=== PATIENT | male | born 1965 | race Caucasian/White ===

== ENCOUNTER 2018-10-11 17:45 | Emergency (ER) | payer BC ==
[2018-10-11] MEDS ORDERED: Codeine/guaiFENesin 100mg-10 MG/5 ML Syrup 10 ML Cup PO ONE (18:16)
--- NOTE | 2018-10-11 18:16 | EDM.PDOC ---
ED HPI GENERAL MEDICAL PROBLEM - General Chief Complaint: Respiratory Problem Stated Complaint: COUGHING Time Seen by Provider: 10/11/18 18:09 Source of Information: Reports: Patient, Family, RN Notes Reviewed History Limitations: Reports: No Limitations - History of Present Illness INITIAL COMMENTS - FREE TEXT/NARRATIVE: 52-year-old gentleman presents emergency department day complaint of cough and shortness of breath, he states been ill for 3 weeks cough is progressively gotten worse he has had posttussive emesis as well does not have a regular physician, fevers initially first week now resolved Right Upper Chest Pain Score (Numeric/FACES): 1 - Related Data Allergies Allergy/AdvReac Type Severity Reaction Status Date / Time No Known Allergies Allergy Verified 10/11/18 18:02 Home Meds: Home Meds Multivitamin [Multi Vitamin Daily] 1 each PO DAILY 09/02/13 [History] Past Medical History Musculoskeletal History: Reports: Fracture - Past Surgical History GI Surgical History: Reports: Colostomy Social & Family History - Tobacco Use Smoking Status *Q: Never Smoker - Caffeine Use Caffeine Use: Reports: Soda - Recreational Drug Use Recreational Drug Use: No ED ROS GENERAL - Review of Systems Review Of Systems: See Below Constitutional: Reports: Fever, Diaphoresis. Denies: Chills HEENT: Reports: No Symptoms Respiratory: Reports: Shortness of Breath, Cough, Sputum Cardiovascular: Reports: Chest Pain GI/Abdominal: Reports: Nausea, Vomiting : Reports: No Symptoms Musculoskeletal: Reports: No Symptoms Skin: Reports: No Symptoms Neurological: Reports: No Symptoms ED EXAM, GENERAL - Physical Exam Exam: See Below Free Text/Narrative:: General: Male, not in any distress, alert and oriented x3 HEENT: head is atraumatic normocephalic, eyes pupils equal round reactive to light, sclera clear no conjunctivitis appreciated. Ears tympanic membranes clear and schmitz landmarks and light reflex are present bilaterally canals are clear. Nose no septal deviation, nares are clear, no blood present. Mouth mucosa is moist and pink no erythema or exudate noted in soft palate, tongue is midline uvula is midline, dentition is intact. Neck: Supple no thyromegaly no tracheal deviation. Nodes: Cervical nodes subclavicular nodes nontender no palpable lymphadenopathy noted. Lungs: clear to auscultation bilaterally with symmetrical respirations, no adventitious noise appreciated. CV: Regular rate and rhythm S1 and S2 appreciated no murmurs rubs or gallops noted. Abdomen: Soft, nontender, no palpable masses or organomegaly appreciated, no distention no guarding bowel sounds are present, Course - Vital Signs Last Recorded V/S: Last Vital Signs Temp 96.1 F 10/11/18 18:03 Pulse 87 10/11/18 18:03 Resp 16 10/11/18 18:03 BP 159/84 H 10/11/18 18:03 Pulse Ox 97 10/11/18 18:03 - Orders/Labs/Meds Orders: Active Orders 24 hr Category Date Time Status Cardiac Monitoring [RC] .As Directed Care 10/11/18 18:12 Active [email or web address] PCR Urgent Lab 10/11/18 18:54 Ordered Labs: Laboratory Tests 10/11/18 10/11/18 10/11/18 Range/Units 18:24 18:24 18:24 WBC 7.4 (4.5-11.0) K/uL RBC 4.66 (4.30-5.90) M/uL Hgb 14.0 (12.0-15.0) g/dL Hct 42.4 (40.0-54.0) % MCV 91 (80-98) fL MCH 30 (27-31) pg MCHC 33 (32-36) % Plt Count 243 (150-400) K/uL Neut % (Auto) 65 (36-66) % Lymph % (Auto) 27 (24-44) % [place] % (Auto) 6 (2-6) % Eos % (Auto) 2 (2-4) % Baso % (Auto) 0 (0-1) % Sodium 141 (140-148) mmol/L Potassium 3.8 (3.6-5.2) mmol/L Chloride 103 (100-108) mmol/L Carbon Dioxide 26 (21-32) mmol/L Anion Gap 12.1 (5.0-14.0) mmol/L BUN 16 (7-18) mg/dL Creatinine 1.1 (0.8-1.3) mg/dL Est Cr Clr Drug Dosing 77.66 mL/min Estimated GFR (MDRD) > 60 (>60) Glucose 136 H (74-106) mg/dL Lactic Acid 2.7 H (0.4-2.0) mmol/L Calcium 9.1 (8.5-10.1) mg/dL Total Bilirubin 0.4 (0.2-1.0) mg/dL AST 19 (15-37) U/L ALT 28 (12-78) U/L Alkaline Phosphatase 67 (46-116) U/L Troponin I < 0.017 (0.000-0.056) ng/mL Total Protein 7.3 (6.4-8.2) g/dL Albumin 3.7 (3.4-5.0) g/dL Globulin 3.6 H (2.3-3.5) g/dL Albumin/Globulin Ratio 1.0 L (1.2-2.2) Meds: Medications Discontinued Medications Generic Name Dose Route Start Last Admin Trade Name Freq PRN Reason Stop Dose Admin Benzonatate 200 mg 10/11/18 18:53 10/11/18 19:14 Tessalon Perles PO 10/11/18 18:54 200 mg ONETIME ONE Administration Guaifenesin/Codeine Phosphate 10 ml 10/11/18 18:16 10/11/18 18:32 Robitussin Ac PO 10/11/18 18:17 10 ml ONETIME ONE Administration Departure - Departure Time of Disposition: 19:15 Disposition: Home, Self-Care 01 Condition: Fair Clinical Impression: Bronchitis - Discharge Information Referrals: PCP,None [Primary Care Provider] - Forms: ED Department Discharge Additional Instructions: Take full course of antibiotics, use Robitussin with codeine to help suppress the cough please follow-up with your primary care provider in the next 3-5 days for reevaluation - My Orders Last 24 Hours: My Active Orders 10/11/18 18:12 Cardiac Monitoring [RC] .As Directed 10/11/18 18:54 [email or web address] PCR Urgent - Assessment/Plan Last 24 Hours: My Active Orders 10/11/18 18:12 Cardiac Monitoring [RC] .As Directed 10/11/18 18:54 [email or web address] PCR Urgent Plan: Assessment Acuity = acute Site and laterality = bronchitis Etiology = unclear etiology Manifestations = cough Location of injury = Home Lab values = CBC, CMP chest x-ray unremarkable pertussis pending Plan Prescription written for azithromycin 5 day course, Robitussin with codeine 10 mL every 4-6 hours when necessary 120 mm bottle him follow-up primary care 3-5 days for reevaluation This note was dictated using [employer] voice recognition software please call with any questions on syntax or grammar.
--- NOTE | 2018-10-11 18:40 | CRLCR ---
Indication: Cough. Technique: PA and lateral views the chest were obtained. Comparison: None Findings: Heart is normal in size. The lungs are hyperinflated. No infiltrate, pleural effusion, or pneumothorax is identified. Impression: No acute cardiopulmonary process. Dictated by Pushpa Malin MD @ Oct 11 2018 6:37PM Signed by Dr. Pushpa Malin @ Oct 11 2018 6:39PM
[2018-10-11] MEDS ORDERED: Benzonatate 100 MG Cap PO ONE (18:53)
[2018-10-16 11:08] LABS: BORDETELLA PARAPERTUSSIS DNA Negative (Negative); BORDETELLA PERTUSSIS DNA Negative (Negative)
== END 2018-10-11 19:28 | disposition home or self-care (01) ==
LOC: JP.ED 17:45
DX: J40 Bronchitis, not specified as acute or chronic (principal)
CPT/HCPCS: 36415; 71046; 80053; 83605; 84484; 85025; 87798; 99283; A9270

== ENCOUNTER 2023-10-11 12:41 | Emergency (ER) | payer BC ==
[2023-10-11] MEDS: Doxycycline 100 MG Cap PO ONE (15:41)
== END 2023-10-11 15:45 | disposition home or self-care (01) ==
LOC: JP.ED 12:41
DX: S40.861A Insect bite (nonvenomous) of right upper arm, initial encounter (principal); Z86.16 Personal history of COVID-19; Z79.899 Other long term (current) drug therapy; W57.XXXA Bitten or stung by nonvenomous insect and other nonvenomous arthropods, initial encounter
CPT/HCPCS: 99281; A9270